=== PATIENT | female | born 1950 | race Caucasian/White ===

== ENCOUNTER 2016-11-17 10:21 | Emergency (ER) | payer MEDICARE, OTHER ==
[~2016-11-17 10:21] MED LIST: ACTOS15 M1 PO; ACTOS30 M1 PO; ADULT ASPIRIN81 MG; AGGRENOX 25 MG-1 CAP PO; AGGRENOX CAP1 BOTTLE; AGGRENOX1 CAP PO; AMARYL1 M1; AMARYL2 M1 PO; ASPIR 8181 MG PO; ASPIRIN325 MG; ASPIRIN325 MG PO; ASPIRIN81 MG; ATIVAN1 MG PO; BUDEPRION SR150 MG; BYETTA10 MCG/0.0 SQ; CALCIUM 600 +1 EA23 PO; CELEBREX200 M1 PO; CLONAZEPAM PO; CLONAZEPAM0.5 MG PO; CLONAZEPAM1 MG; CO Q-10100 M2 PO; COMPAZINE10 M PO; COMPLETE MULTI1 EAC1 PO; COUMADIN2.5 MG; COUMADIN4 MG; COZAAR50 MG; COZAAR50 MG PO; CYCLOBENZAPRINE5 M1 PO; FARXIGA10 M1 PO; FISH OIL1 CAP; FISH OIL1 CAP PO; GABAPENTIN600 M2 PO; GLIMEPIRIDE2 M1 PO; GLUCOPHAGE XR500 MG; GLUCOPHAGE500 MG; HYDROCHLOROTH12.5 M3 PO; LIPITOR20 M1 GT; LORAZEPAM1 MG PO; LYRICA75 MG; MEDROL4 M2 PO; MULTI-VITAMIN1 TAB PO; MULTIVITAMIN1 TAB; NEURONTIN300 MG; NEURONTIN300 MG PO; NEURONTIN600 MG PO; NORCO 5-325 TA1 EACH PO; NORCO 5/325 TAB1 TAB PO; NORTRIPTYLINE H50 MG; NORTRIPTYLINE H50 MG PO; OXYCODONE-ACET1 EAC3 PO; PAMELOR50 MG; PERCOCET 5/3251 TAB PO; PLAVIX PO; PLAVIX75 MG; PLAVIX75 MG PO; REQUIP0.25 M1 PO; SIMVASTATIN40 MG PO; SKELAXIN800 MG PO; TIZANIDINE HCL4 M3 PO; TOPROL XL50 M1 PO; TRAMADOL HCL50 MG; ULTRAM50 MG; ULTRAM50 MG PO; VIACTIV PO; VICKS DAYQUIL PO; VITAMIN D1000 UNI3 PO; WELLBUTRIN SR150 MG; WELLBUTRIN SR150 MG PO; WELLBUTRIN SR200 M2 PO; WELLBUTRIN XL300 M3 PO; ZANAFLEX4 M2 PO; ZIAC 2.5-6.25 M1 TAB; ZIAC 2.5-6.25 M1 TAB PO; ZIAC 2.5/6.25 M1 TAB; ZOCOR20 MG; ZOCOR40 MG; ZOCOR80 MG PO; [UNRECOGNIZED DRUG - OTHER]; [UNRECOGNIZED DRUG - OTHER]; [UNRECOGNIZED DRUG - OTHER]
[2016-11-17] MEDS ORDERED: AGGRENOX 25 MG1 EACH PO (11:01)
[2016-11-17] MEDS ORDERED: ATORVASTATIN CA20 M1 PO (11:01)
[2016-11-17] MEDS ORDERED: BUPROPION XL300 M1 PO (11:03)
[2016-11-17] MEDS ORDERED: CELEBREX200 M1 PO (11:04)
[2016-11-17] MEDS ORDERED: CALCIUM 600 +1 EA12 PO (11:04)
[2016-11-17] MEDS ORDERED: KLONOPIN1 M1 PO (11:05)
[2016-11-17] MEDS ORDERED: [UNRECOGNIZED DRUG - CODE] PO (11:05)
[2016-11-17] MEDS ORDERED: JARDIANCE25 MG PO (11:06)
[2016-11-17] MEDS ORDERED: AMARYL2 M1 PO (11:06)
[2016-11-17] MEDS ORDERED: NEURONTIN600 M1 PO (11:06)
[2016-11-17] MEDS ORDERED: CYCLOBENZAPRINE10 M1 PO (11:06)
[2016-11-17] MEDS ORDERED: MULTIVITAMINS1 EAC6 PO (11:07)
[2016-11-17] MEDS ORDERED: COZAAR50 M1 PO (11:07)
[2016-11-17] MEDS ORDERED: XALATAN2.5 M1 EACH EYE (11:07)
[2016-11-17] MEDS ORDERED: TOPROL XL50 M1 PO (11:07)
[2016-11-17] MEDS ORDERED: ACTOS30 M1 PO (11:07)
[2016-11-17] MEDS ORDERED: REQUIP0.25 M1 PO (11:07)
[2016-11-17] MEDS ORDERED: VITAMIN D31000 UNI3 PO (11:08)
[2016-11-17] MEDS ORDERED: TRIAMCINOLONE A15 G4 TP (11:08)
[2016-11-17] MEDS ORDERED: AUGMENTIN 875-1 EAC2 PO (11:09)
[2016-11-17] MEDS ORDERED: BACTRIM DS TAB1 EAC2 PO (12:11)
== END 2016-11-17 12:30 ==
LOC: EDMED 10:21
DX: S90.121A Contusion of right lesser toe(s) without damage to nail, initial encounter (principal); L08.9 Local infection of the skin and subcutaneous tissue, unspecified; E11.9 Type 2 diabetes mellitus without complications; X58.XXXA Exposure to other specified factors, initial encounter